=== PATIENT | female | born 1945 | race Caucasian/White ===

== ENCOUNTER 2024-08-24 09:58 | Inpatient (IN) | payer MEDICARE, BC ==
[2024-08-24] VITALS (28 sets, daily range): BP systolic 123–170; BP diastolic 56–99; PULSE 67–86; RESP 12–19; TEMP 97–97.2; O2SAT 96–100
[~2024-08-24] VITALS: Ht 165.1 cm; Wt 56.8 kg
[2024-08-24 11:32] LABS: BASOPHILS % (AUTO) 0.3 % (0-1); EOSINOPHILS % (AUTO) 0.3 % (0-6); HEMATOCRIT 38.3 % (35.0-45.0); HEMOGLOBIN 12.9 g/dl (12.0-16.0); LYMPHOCYTES # (AUTO) 0.8 X10'3 (1.1-4.8); LYMPHOCYTES % (AUTO) 9.1 % (21-51); MEAN CORPUSCULAR HEMOGLOBIN 31.9 PG (27.0-31.0); MEAN CORPUSCULAR HGB CONC 33.7 g/dL (33.0-36.5); MEAN CORPUSCULAR VOLUME 94.6 FL (78-98); MEAN PLATELET VOLUME 7.6 FL (7.4-10.4); MONOCYTES # (AUTO) 0.6 X10'3 (0-0.9); MONOCYTES % (AUTO) 7.7 % (2-12); NEUTROPHILS # (AUTO) 6.8 X10'3 (1.8-7.7); NEUTROPHILS % (AUTO) 82.6 % (42-75); PLATELET COUNT 252 X10'3 (140-440); RED BLOOD COUNT 4.04 X10'6 (4.20-5.60); RED CELL DISTRIBUTION WIDTH 13.6 % (11.5-14.5); WHITE BLOOD COUNT 8.3 X10'3 (4.5-11.0)
[2024-08-24 11:41] LABS: INR 0.9 INR; PROTHROMBIN TIME 9.9 SECONDS (9.0-12.0)
[2024-08-24 11:47] LABS: ALANINE AMINOTRANSFERASE 25 U/L (12-78); ALBUMIN 4.2 G/DL (3.4-5.0); ALBUMIN/GLOBULIN RATIO 1.1 (1.1-1.5); ALKALINE PHOSPHATASE 38 IU/L (46-116); ANION GAP 7 (8-16); ASPARTATE AMINO TRANSFERASE 29 U/L (10-37); BILIRUBIN,TOTAL 0.5 MG/DL (0.1-1.0); BLOOD UREA NITROGEN 17 MG/DL (7-18); BUN/CREATININE RATIO 24.3 (10.0-20.0); CALCIUM 9.1 MG/DL (8.5-10.1); CHLORIDE 104 MMOL/L (99-107); GLUCOSE 109 MG/DL (70-104); POTASSIUM 4.5 MMOL/L (3.5-5.1); SODIUM 140 MMOL/L (135-145); TOTAL CARBON DIOXIDE 28.7 MMOL/L (24-32); TOTAL PROTEIN 7.9 G/DL (6.4-8.2); eCRCL 58 ML/MIN; eGFR 81 ML/MIN
[2024-08-24] MEDS: fentaNYL/PF 50MCG/1 ML 2ML syringe IV ONE (11:55)
[2024-08-24] MEDS ORDERED: ROPIVAcaine 0.5% (5mg/ml) 30ml vial ONE ×2 (12:12→13:03)
[2024-08-24] MEDS ORDERED: vancomycin 1,000mg inj ONE (12:12)
[2024-08-24] MEDS ORDERED: tranexamic acid 100mg/ml inj. ONE (12:12)
[2024-08-24] MEDS ORDERED: cloNIDine hcl/PF 100mcg/ml inj ONE (12:29)
[2024-08-24] MEDS ORDERED: fentaNYL/PF 50MCG/1 ML 2ML syringe ONE (12:31)
[2024-08-24] MEDS ORDERED: midazolam 1 mg/ML 2ml injection ONE (12:32)
[2024-08-24] MEDS ORDERED: sevoflurane 250ml liquid IH ONE (12:35)
[2024-08-24 12:38] LABS: BILIRUBIN,URINE NEGATIVE (Neg); CLARITY,URINE CLEAR (Clear); COLOR,URINE YELLOW (Yellow); GLUCOSE, URINE NEGATIVE (Neg); KETONES,URINE NEGATIVE (Neg); LEUKOCYTE ESTERASE ,URINE NEGATIVE (Neg); NITRITES, URINE NEGATIVE (Neg); OCCULT BLOOD,URINE NEGATIVE (Neg); PROTEIN,URINE NEGATIVE (Neg); UROBILINOGEN,URINE 0.2 E.U/dL (0.2-1.0)
[2024-08-24] MEDS ORDERED: proCHLORperazine 10 MG/2 ml inj IV PRN (12:40)
[2024-08-24] MEDS ORDERED: hydrALAZINE 20mg/ml inj. IV PRN ×2 (12:40→16:35)
[2024-08-24] MEDS ORDERED: morphine 4 MG/ML inj SYRINge IV PRN (12:40)
[2024-08-24] MEDS ORDERED: morphine 2 MG/ML inj. syringe IV PRN ×2 (12:40→16:30)
[2024-08-24] MEDS ORDERED: famotidine/PF 10 mg/ml inj IV ONE (12:40)
[2024-08-24] MEDS ORDERED: meperidine/PF 25mg/ml syringe IV PRN ×2 (12:40)
[2024-08-24] MEDS: ringers solution, lacted 1,000 ML IV SCH (12:40)
[2024-08-24] MEDS ORDERED: labetalol 20mg/4ml (5mg/ml) syringe IV PRN (12:40)
[2024-08-24] MEDS ORDERED: ondansetron/PF 4mg/2ml inj IV PRN (12:40)
[2024-08-24 12:45] LABS: UA COLLECTION TYPE FOLEY CATH
[2024-08-24] MEDS ORDERED: dexamethasone sod phosphate 4mg/ml inj. ONE (13:03)
[2024-08-24] MEDS ORDERED: ondansetron/PF 4mg/2ml inj ONE (13:03)
[2024-08-24] MEDS ORDERED: LIDOcaine 2% (20mg/ml) 5ml vial ONE (13:03)
[2024-08-24] MEDS ORDERED: ceFAZolin 1000mg inj ONE ×2 (13:03)
[2024-08-24] MEDS ORDERED: propofol inj 20 ML IV ONE (13:03)
[2024-08-24] MEDS ORDERED: BUPIVACAINE/MELOXICAM 14 ML VIAL IL ONE (13:13)
[2024-08-24] MEDS: BUPIVACAINE/MELOXICAM 14 ML VIAL IL ONE (13:44)
[2024-08-24] MEDS: acetaminophen 1,000mg/100ml IV 100 ML IV ONE (14:22)
[2024-08-24] MEDS: meperidine/PF 25mg/ml syringe IV PRN (14:23)
[2024-08-24] MEDS ORDERED: potassium Cl 40MEQ/1/2NS 520ml 520 ML IV PRN (16:30)
[2024-08-24] MEDS ORDERED: magnesium hydroxide 30ml (MOM) UD suspension PO PRN (16:30)
[2024-08-24] MEDS ORDERED: magnesium sulf-water 2g/50mL 50 ML IV PRN (16:30)
[2024-08-24] MEDS ORDERED: magnesium Cl slow-release 64mg tablet PO PRN (16:30)
[2024-08-24] MEDS ORDERED: magnesium sulf-water 4G/100mL 100 ML IV PRN (16:30)
[2024-08-24] MEDS ORDERED: HYDROmorphone/PF 0.2 MG/ML SYRINGE IV PRN (16:30)
[2024-08-24] MEDS ORDERED: mag hydrox/Alum hydrox/simeth 30ml oral suspension PO PRN (16:30)
[2024-08-24] MEDS ORDERED: potassium Cl 20 mEq SR tablet PO PRN (16:30)
[2024-08-24] MEDS ORDERED: HYDROmorphone inj. 0.5 MG/0.5 ML DISP.SYRIN IV PRN (16:30)
[2024-08-24] MEDS: normal saline 1000ml 1,000 ML IV SCH (16:30)
[2024-08-24] MEDS ORDERED: acetaminophen 325mg tablet PO PRN (16:30)
[2024-08-24] MEDS ORDERED: LEVO75TA7 PO (18:45)
[2024-08-24] MEDS: K and/or MAG REPLACEMENT MC SCH (20:00)
[2024-08-24] MEDS: HYDROcodone/acetaminophen 5mg/325mg tablet PO PRN (20:59)
[2024-08-24] MEDS: diphenhydrAMINE 25mg capsule PO PRN (21:00)
[2024-08-24] MEDS: docusate sod 100mg capsule PO SCH (21:00)
[2024-08-24] MEDS: sennosides/docusate sodium tablet PO SCH (21:00)
[2024-08-25 02:00] VITALS: BP 133/72; PULSE 78; RESP 15; TEMP 98.1; O2SAT 96
[2024-08-25 06:00] VITALS: BP 111/60; PULSE 87; RESP 18; TEMP 98.6; O2SAT 97
[2024-08-25 06:32] LABS: BASOPHILS % (AUTO) 0.1 % (0-1); EOSINOPHILS % (AUTO) 0.1 % (0-6); HEMATOCRIT 32.1 % (35.0-45.0); HEMOGLOBIN 10.7 g/dl (12.0-16.0); LYMPHOCYTES % (AUTO) 8.5 % (21-51); MEAN CORPUSCULAR HEMOGLOBIN 32.1 PG (27.0-31.0); MEAN CORPUSCULAR HGB CONC 33.3 g/dL (33.0-36.5); MEAN CORPUSCULAR VOLUME 96.4 FL (78-98); MEAN PLATELET VOLUME 7.9 FL (7.4-10.4); MONOCYTES % (AUTO) 8.4 % (2-12); NEUTROPHILS # (AUTO) 9.5 X10'3 (1.8-7.7); NEUTROPHILS % (AUTO) 82.9 % (42-75); PLATELET COUNT 238 X10'3 (140-440); RED BLOOD COUNT 3.33 X10'6 (4.20-5.60); RED CELL DISTRIBUTION WIDTH 13.2 % (11.5-14.5); WHITE BLOOD COUNT 11.5 X10'3 (4.5-11.0)
[2024-08-25 07:05] LABS: ALANINE AMINOTRANSFERASE 17 U/L (12-78); ALKALINE PHOSPHATASE 32 IU/L (46-116); ANION GAP 7 (8-16); ASPARTATE AMINO TRANSFERASE 34 U/L (10-37); BILIRUBIN,TOTAL 0.7 MG/DL (0.1-1.0); BLOOD UREA NITROGEN 13 MG/DL (7-18); BUN/CREATININE RATIO 20.3 (10.0-20.0); CALCIUM 8.3 MG/DL (8.5-10.1); CHLORIDE 105 MMOL/L (99-107); CREATININE 0.64 MG/DL (0.40-0.90); FREE T4 (FREE THYROXINE) 1.42 NG/DL (0.73-1.40); GLUCOSE 115 MG/DL (70-104); MAGNESIUM 1.8 MG/DL (1.5-2.4); POTASSIUM 4.1 MMOL/L (3.5-5.1); SODIUM 138 MMOL/L (135-145); THYROID STIMULATING HORMONE 0.71 ulU/ml (0.34-4.50); TOTAL CARBON DIOXIDE 25.8 MMOL/L (24-32); TOTAL PROTEIN 6.1 G/DL (6.4-8.2); eCRCL 63 ML/MIN; eGFR 89 ML/MIN
[2024-08-25] MEDS: heparin, porcine 5000 units/ml vial SQ SCH (08:27)
[2024-08-25 10:00] VITALS: BP 125/58; PULSE 81; RESP 16; TEMP 97.5; O2SAT 100
[2024-08-25] MEDS: acetaminophen 325mg tablet PO PRN (16:30)
[2024-08-25 18:00] VITALS: BP 119/64; PULSE 91; RESP 15; TEMP 99.9; O2SAT 98
[2024-08-25 20:20] VITALS: RESP 16
[2024-08-25] MEDS: HYDROcodone/acetaminophen 10/325mg tab PO PRN (20:54)
[2024-08-25 22:00] VITALS: BP 136/73; PULSE 97; RESP 16; TEMP 99.2; O2SAT 97
[2024-08-26 06:00] VITALS: BP 155/87; PULSE 89; RESP 16; TEMP 99.2; O2SAT 99
[2024-08-26 06:03] LABS: BASOPHILS % (AUTO) 0.3 % (0-1); EOSINOPHILS % (AUTO) 0.1 % (0-6); HEMATOCRIT 31.8 % (35.0-45.0); LYMPHOCYTES # (AUTO) 0.9 X10'3 (1.1-4.8); LYMPHOCYTES % (AUTO) 11.2 % (21-51); MEAN CORPUSCULAR HEMOGLOBIN 33.3 PG (27.0-31.0); MEAN CORPUSCULAR HGB CONC 34.5 g/dL (33.0-36.5); MEAN CORPUSCULAR VOLUME 96.6 FL (78-98); MEAN PLATELET VOLUME 8.1 FL (7.4-10.4); MONOCYTES # (AUTO) 0.8 X10'3 (0-0.9); MONOCYTES % (AUTO) 9.4 % (2-12); NEUTROPHILS # (AUTO) 6.7 X10'3 (1.8-7.7); PLATELET COUNT 221 X10'3 (140-440); RED BLOOD COUNT 3.29 X10'6 (4.20-5.60); RED CELL DISTRIBUTION WIDTH 13.3 % (11.5-14.5); WHITE BLOOD COUNT 8.4 X10'3 (4.5-11.0)
[2024-08-26 06:22] LABS: ALANINE AMINOTRANSFERASE 63 U/L (12-78); ALBUMIN 3.3 G/DL (3.4-5.0); ALBUMIN/GLOBULIN RATIO 0.9 (1.1-1.5); ALKALINE PHOSPHATASE 45 IU/L (46-116); ANION GAP 7 (8-16); ASPARTATE AMINO TRANSFERASE 132 U/L (10-37); BILIRUBIN,TOTAL 0.6 MG/DL (0.1-1.0); BLOOD UREA NITROGEN 11 MG/DL (7-18); BUN/CREATININE RATIO 15.5 (10.0-20.0); CALCIUM 8.5 MG/DL (8.5-10.1); CHLORIDE 102 MMOL/L (99-107); CREATININE 0.71 MG/DL (0.40-0.90); GLUCOSE 113 MG/DL (70-104); MAGNESIUM 1.7 MG/DL (1.5-2.4); POTASSIUM 3.4 MMOL/L (3.5-5.1); SODIUM 138 MMOL/L (135-145); TOTAL CARBON DIOXIDE 28.6 MMOL/L (24-32); TOTAL PROTEIN 6.8 G/DL (6.4-8.2); eCRCL 57 ML/MIN; eGFR 79 ML/MIN
[2024-08-26] MEDS: ondansetron/PF 4mg/2ml inj IV PRN (08:15)
[2024-08-26] MEDS: morphine 2 MG/ML inj. syringe IV PRN (08:15)
[2024-08-26] MEDS: potassium Cl 20 mEq SR tablet PO PRN (09:11)
[2024-08-26 10:00] VITALS: BP 125/74; PULSE 91; RESP 16; TEMP 97.6; O2SAT 98
[2024-08-26 18:00] VITALS: BP 124/61; PULSE 83; RESP 16; TEMP 98.6; O2SAT 99
[2024-08-26 20:00] VITALS: RESP 16; O2SAT 99
[2024-08-26 22:00] VITALS: BP 139/68; PULSE 89; RESP 16; TEMP 97.3; O2SAT 96
[2024-08-27 06:00] VITALS: BP 138/76; PULSE 91; RESP 16; TEMP 97.4; O2SAT 96
[2024-08-27 06:24] LABS: BASOPHILS % (AUTO) 0.3 % (0-1); EOSINOPHILS % (AUTO) 0.6 % (0-6); HEMATOCRIT 29.6 % (35.0-45.0); LYMPHOCYTES # (AUTO) 1.1 X10'3 (1.1-4.8); LYMPHOCYTES % (AUTO) 15.8 % (21-51); MEAN CORPUSCULAR HEMOGLOBIN 32.5 PG (27.0-31.0); MEAN CORPUSCULAR VOLUME 95.7 FL (78-98); MEAN PLATELET VOLUME 8.3 FL (7.4-10.4); MONOCYTES # (AUTO) 0.7 X10'3 (0-0.9); MONOCYTES % (AUTO) 9.7 % (2-12); NEUTROPHILS # (AUTO) 5.2 X10'3 (1.8-7.7); NEUTROPHILS % (AUTO) 73.6 % (42-75); PLATELET COUNT 213 X10'3 (140-440); RED BLOOD COUNT 3.09 X10'6 (4.20-5.60); RED CELL DISTRIBUTION WIDTH 13.4 % (11.5-14.5)
[2024-08-27 06:45] LABS: ALANINE AMINOTRANSFERASE 114 U/L (12-78); ALBUMIN 2.7 G/DL (3.4-5.0); ALBUMIN/GLOBULIN RATIO 0.7 (1.1-1.5); ALKALINE PHOSPHATASE 58 IU/L (46-116); ANION GAP 10 (8-16); ASPARTATE AMINO TRANSFERASE 155 U/L (10-37); BILIRUBIN,TOTAL 0.6 MG/DL (0.1-1.0); BLOOD UREA NITROGEN 10 MG/DL (7-18); BUN/CREATININE RATIO 16.1 (10.0-20.0); CALCIUM 8.6 MG/DL (8.5-10.1); CHLORIDE 103 MMOL/L (99-107); CREATININE 0.62 MG/DL (0.40-0.90); GLUCOSE 100 MG/DL (70-104); MAGNESIUM 1.8 MG/DL (1.5-2.4); POTASSIUM 3.8 MMOL/L (3.5-5.1); SODIUM 140 MMOL/L (135-145); TOTAL CARBON DIOXIDE 26.9 MMOL/L (24-32); TOTAL PROTEIN 6.4 G/DL (6.4-8.2); eCRCL 64 ML/MIN; eGFR > 90 ML/MIN
[2024-08-27 10:00] VITALS: BP 125/56; PULSE 84; RESP 14; TEMP 96.8; O2SAT 98
[2024-08-27] MEDS: levoTHYROXINE 75mcg tablet PO SCH (11:38)
[2024-08-27] MEDS: amLODIPine 5mg tablet PO SCH (11:39)
== END 2024-08-27 14:30 | DRG 522 ==
LOC: ER 09:58 → ORTHO 4S 16:33
PROVIDERS: ADMIT Nurse Practitioner Family; ATTEND Nurse Practitioner Family
PROC: 0SRR01Z Replacement of Right Hip Joint, Femoral Surface with Metal Synthetic Substitute, Open Approach (ICD-10-PCS; principal; 2024-08-24 12:35)
DX: S72.011A Unspecified intracapsular fracture of right femur, initial encounter for closed fracture (principal); D62 Acute posthemorrhagic anemia; I10 Essential (primary) hypertension; R53.1 Weakness; E03.9 Hypothyroidism, unspecified; W18.39XA Other fall on same level, initial encounter; Y92.89 Other specified places as the place of occurrence of the external cause; Y99.8 Other external cause status
CPT/HCPCS: 36415; 71045; 73502; 80053; 81003; 83735; 84439; 84443; 85025; 85610; 86885; 86900; 86901; 93005; 96365; 96375; 97110; 97116; 97162; 99285; A4314; A4615; A6454; A7000; C1776; G0378; J0131; J0690; J0735; J1100; J1644; J2003; J2175; J2250; J2270; J2405; J2704; J2795; J3010; J3370; J3490; J7030; J7120; Q0163